=== PATIENT | female | born 1945 | race Caucasian/White ===

== ENCOUNTER 2023-08-25 06:35 | Day surgery (SDC) | payer MEDICARE, OTHER, SELFPAY ==
[2023-08-25] VITALS (13 sets, daily range): BP systolic 50–165; BP diastolic 52–92; BMI 33.5
[2023-08-25] MEDS: TYLENOL 1000 MG PO (12:27)
--- NOTE | 2023-08-25 16:16 | W.SUR.PREOP ---
Pre-Operative Surgical Note
-
I have examined this patient prior to the performance of the scheduled procedure.
The patient's condition is unchanged from the time of the current History and
Physical and the patient is able to undergo the scheduled procedure.
--- NOTE | 2023-08-25 16:16 | W.IMMPOSTOP ---
Surgical Immed Post Op Note
-
primary Surgeon: Marcello Garcia MD
Assisting Surgeon: None
Pre-op Diagnosis: Incisional ventral hernia
Post-op Diagnosis: Same
Procedure Performed:
1. Open incisional ventral hernia repair with mesh
2. Lysis of adhesions
3. Bilateral myofascial advancement flaps
Anesthesia Type: General
Specimen / Cultures: None
Estimated Blood Loss: 17 cc
Complications: None
Operative Findings: Botswanan cheese midline defects extending from the xiphoid to below the umbilicus, final dimensions 10 x 8 cm. Bilateral myofascial advancement flaps were created at the superior aspects to allow for approximation of the posterior
rectus sheath without tension. A 22 x 22 cm Bard soft mesh was placed in the retrorectus space. A single 19 Czech round Rosendo drain was placed through a stab incision in the left lower quadrant.
POST OP PLAN:
Imaging: None
Labs: Routine AM
Diet: Okay for clears, will advance as tolerated
Analgesia: Tylenol 650mg q6 Louie, Leena 5mg q6 PRN, Dilaudid 0.5mg q2h PRN
Neuro/vascular checks: q4h
AC/AP: Hold Therapeutic AC, Ok for DVT PPx
Activity: Ad Modesta
Wound/Incisions/Drains: Routine, CODY to bulb suction.
Abx: None
Dispo: RNF
[2023-08-25] MEDS: MORPHINE SULFATE 1 MG IV ×2 (16:25→16:34)
[2023-08-25] MEDS: NORMOSOL-R 1000 IV (16:49)
[2023-08-25] MEDS: TYLENOL 650 MG PO ×2 (18:18→23:28)
--- NOTE | 2023-08-25 23:35 | PTCARENOTE ---
Pt resting comfortably, denies any complaints. Pt with no urge to void at this time. Bladder scanned for 277ml. No need for st cath at this time. Pt repositioned per comfort. Reports pain at tolerable level. IVF infusing as ordered. Will continue to
monitor.
[2023-08-26 02:00] VITALS: BP 111/54
[2023-08-26] MEDS: NORMOSOL-R 1000 IV ×2 (03:08→18:23)
--- NOTE | 2023-08-26 03:16 | PTCARENOTE ---
Pt awake and ambulatory to bathroom with assistance. pt able to void large amount without difficulty. Pt denies any complaints of pain or discomfort. midline abd aquacell dressing remains dry and intact. Left CODY drain emptied for 30cc at this time.
pt tolerating sips of water. thigh high seq in place. IVF infusing as ordered. Will continue to monitor.
[2023-08-26] MEDS: TYLENOL 650 MG PO ×4 (06:03→23:51)
[2023-08-26] MEDS: SYNTHROID 50 MCG PO (06:03)
--- NOTE | 2023-08-26 07:42 | W.PN.GS2 ---
Today's Communication / Plan
-
Out of bed and ambulate.
Assessment / Plan
-
78-year-old female postoperative day 1 from an incisional hernia repair (bilateral transversus abdominis release and retrorectus mesh). Doing well, expected postoperative course.
Continue pain regimen.
Labs ordered for this a.m.
Out of bed and ambulate, abdominal binder.
Will advance to a regular diet once having bowel function.
Anticipate discharge over the weekend.
Time Spent
Total Time Spent with Patient (in minutes): 10
Subjective Data
-
Date of Service: August 26, 2023
Interval Events:
No acute events overnight. Slept well. Pain Controlled. Denies Nausea/Vomiting, -bowel function. Voided. Tolerating clear liquid diet.
Objective Data
-
Intake and Output
08/25/23 08/26/23 08/27/23
06:59 06:59 06:59
Intake Total 1531 / 1531
Output Total 130 / 130
Balance 1401 / 1401
Intake:
Oral fluids 495 / 495
IV fluids (Total) 1036 / 1036
Normosol-R 1,000 ml @ 75 mls/hr 36 / 36
IV .[id number] [facility]#:[id number]
norm 100 / 100
Output:
Drain Output (Total) 130 / 130
Abdomen Yogi-Eastman 130 / 130
Other:
Number of approximated LARGE 1
amounts of urine
Vital Signs
Temp Pulse Resp BP Pulse Ox
97.5 F 66 16 111/54 97
08/26/23 02:00 08/26/23 02:00 08/26/23 02:00 08/26/23 02:00 08/26/23 02:00
Physical Exam
-
GENERAL/NEURO: Awake, Alert, no distress
CHEST: Unlabored breathing on RA
ABDOMEN: Soft, Non-Tender, Non-Distended, dressing clean dry and intact, CODY a little on the bloody side.
[2023-08-26 08:00] VITALS: BP 133/62
[2023-08-26 08:58] LABS: % Basophils 0.8 % (0-2); % Eosinophils 0.1 % (0-6); % Immature Granulocytes 0.7 % (0-0.5); % Monocytes 7.4 % (1.7-9.3); Absolute Basophils 0.1 10^3/uL (0-0.2); Absolute Immature Granulocytes 0.1 10^3/uL (0-0.05); Absolute Monocytes 0.7 10^3/uL (0.1-0.6); Absolute Neutrophils 7.1 10^3/uL (1.4-6.5); Hematocrit 28.6 % (37.0-47.0); Hemoglobin 9.8 g/dL (12.0-16.0); Mean Corp Hgb Conc. 34.3 g/dL (33.0-37.0); Mean Corpuscular Hgb 27.5 pg (27.0-31.0); Mean Corpuscular Volume 80.1 fL (81.0-99.0); Mean Platelet Volume 9.9 fL (7.4-10.4); Nucleated Red Blood Cells % 0 %; Platelet Count 211 10^3/uL (130-400); Red Blood Cell Count 3.57 10^6/uL (4.20-5.40); Red Cell Dist. Width 13.4 % (11.5-14.5); White Blood Cell Count 8.9 10^3/uL (4.8-10.8)
[2023-08-26 09:18] LABS: Blood Urea Nitrogen 28 mg/dl (7-17); Calcium 8.5 mg/dl (8.4-10.2); Carbon Dioxide 20 mmol/L (22-30); Chloride 101 mmol/L (98-107); Estimated Creatinine Clearance 70 ml/min; Glucose 118 mg/dl (70-99); Potassium 3.7 mmol/L (3.5-5.1); Sodium 134 mmol/L (135-145); eGFR > 60.00
--- NOTE | 2023-08-26 10:52 | CM ---
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
staff, has w/ch in home, no other DME or O2. Pharmacy is [facility] in [facility], PCP is Dr. Chelsea Echeverria. Anticipate home with no needs. Patient is in agreement.
[2023-08-26 11:25] VITALS: BP 105/60
[2023-08-26 11:26] VITALS: BMI 34.2
--- NOTE | 2023-08-26 12:54 | OR.RPT ---
Operative Report
Operative Report
Patient Name: Valerie Cassidy
: 1945
Date of Operation: [08/25/2023]
Preoperative Diagnosis: Incisional ventral hernia
Postoperative Diagnosis: Same
Procedure(s):
1. Open ventral hernia repair with mesh
2. Lysis of adhesions
3. Bilateral myofascial advancement flaps
Surgeon(s):
Dr. Garcia
Feed Crusher(s):
LOYD Borges
Anesthesia: General
Estimated Blood Loss: [17] cc
Urine Output: None
Drains/Lines/Implants: [None]
Specimens: [None]
Indication for surgery:
This is a 78-year-old female with a symptomatic midline incisional hernia from a prior Whipple operation for benign disease. After review of their therapeutic options, they elected to pursue an open repair.
Findings at the time of surgery:
Patient had multiple midline hernia defects extending from the xiphoid to just above the umbilicus. The defect were 10 x 8 cm. After development of the retrorectus space there was significant tension at the superior aspect of the wound so
bilateral myofascial advancement flaps (DARYL procedure) was performed to allow for approximation of the rectus sheath without tension. A 22 x 22 cm piece of Bard soft mesh was placed into the retrorectus space. A single 19 Mongolian round Rosendo drain
was placed through stab incision in the left lower quadrant.
Details of the operation:
After successful induction of general anesthesia and placement of an endotracheal tube, an 18 Mongolian NG tube and a 16 Mongolian Bain were placed. The patient was clipped, prepped and draped in the supine position. A team timeout was performed
confirming administration of DVT prophylaxis, IV antibiotics and SCDs. Her previous midline incision was incised and the dissection was carried down to the fascia. The abdomen was entered safely, though there was significant adhesions to the
anterior abdominal wall. In particular the transverse colon and omentum were particularly adhesed and had to be carefully lysed off of the parietal peritoneum. We then began a full lysis of adhesions taking care to protect her Whipple anatomy.
This took roughly 100 minutes. The hernia defects was roughly 10 x 8 cm. Bilateral tap blocks with quarter percent Marcaine was performed. A blue towel was placed in the abdomen to protect the viscera. We then began our retrorectus hernia repair
by getting into the retrorectus space bilaterally and peeling the rectus muscle off of the posterior rectus sheath up to the neurovascular perforators. The inferior epigastrics bilaterally were identified and protected. In the midline it appeared
that the rectus sheaths would come together however near the apex there was significant tension. At this point we elected to perform bilateral myofascial advancement flaps by incising the posterior lamella of the internal oblique just medial to the
neurovascular bundles and exposing the transversus abdominis muscle bellies. The muscle bellies were divided using electrocautery, taking care to not violate the underlying transversalis fascia/peritoneum. This was taken down roughly 6 cm
bilaterally allowing sufficient mobilization of the posterior rectus sheath. The posterior rectus sheath was then closed with running 2-0 Vicryl that was anchored at each apex and run to the middle and tied together. Prior to closing this, the
blue towel was removed. Our dissection space was measured to be roughly 22 x 22 cm and so 30 x 30 cm piece of Bard soft mesh was cut to size and placed in the retrorectus space without fixation. A single 19 Mongolian round Rosendo drain was then placed
through a stab incision in the left lower quadrant and brought up the right retrorectus space and secured in place with a 3-0 nylon. The anterior fascia was then closed with running 0 PDS sutures anchored at each apex and tied in the middle. The
skin was then closed in layers with first running 2-0 Vicryl followed by interrupted 3-0 Vicryl subdermals and finally a running 4-0 Monocryl followed by Dermabond. An Aquacel dressing was placed. Counts were correct x 2.
I was the attending physician and performed the procedure with assistance from the TRACK REPAIRER above. I was present for all portions of the case
Marcello Garcia MD
[2023-08-26 15:48] VITALS: BP 117/61
[2023-08-26] MEDS: LOVENOX 40 MG SC (17:50)
[2023-08-26] MEDS: ROXICODONE 5 MG PO (18:23)
[2023-08-26 23:35] VITALS: BP 124/64
[2023-08-27] MEDS: ROXICODONE 5 MG PO ×2 (00:26→23:41)
[2023-08-27 05:25] VITALS: BMI 34.2
[2023-08-27] MEDS: TYLENOL 650 MG PO ×4 (05:34→23:42)
[2023-08-27] MEDS: SYNTHROID 50 MCG PO (05:34)
[2023-08-27 06:26] LABS: % Basophils 0.8 % (0-2); % Eosinophils 2.8 % (0-6); % Immature Granulocytes 0.4 % (0-0.5); % Lymphocytes 24.2 % (20.5-51.1); % Monocytes 8.8 % (1.7-9.3); Absolute Eosinophils 0.2 10^3/uL (0-0.7); Absolute Lymphocytes 1.3 10^3/uL (1.2-3.4); Absolute Monocytes 0.5 10^3/uL (0.1-0.6); Absolute Neutrophils 3.4 10^3/uL (1.4-6.5); Hematocrit 28.7 % (37.0-47.0); Hemoglobin 9.4 g/dL (12.0-16.0); Mean Corp Hgb Conc. 32.8 g/dL (33.0-37.0); Mean Corpuscular Hgb 27.4 pg (27.0-31.0); Mean Corpuscular Volume 83.7 fL (81.0-99.0); Nucleated Red Blood Cells % 0 %; Platelet Count 173 10^3/uL (130-400); Red Blood Cell Count 3.43 10^6/uL (4.20-5.40); Red Cell Dist. Width 13.5 % (11.5-14.5); White Blood Cell Count 5.3 10^3/uL (4.8-10.8)
[2023-08-27 06:48] LABS: Blood Urea Nitrogen 17 mg/dl (7-17); Calcium 8.3 mg/dl (8.4-10.2); Carbon Dioxide 28 mmol/L (22-30); Chloride 106 mmol/L (98-107); Estimated Creatinine Clearance 71 ml/min; Glucose 99 mg/dl (70-99); Potassium 3.5 mmol/L (3.5-5.1); Sodium 137 mmol/L (135-145); eGFR > 60.00
[2023-08-27 07:51] VITALS: BP 138/65
--- NOTE | 2023-08-27 09:02 | W.PN.GS2 ---
Today's Communication / Plan
-
Continue clears, await bowel function
Assessment / Plan
-
78-year-old female postoperative day 1 from an incisional hernia repair (bilateral transversus abdominis release and retrorectus mesh). Doing well, expected postoperative course.
Continue pain regimen.
Labs have normalized
Out of bed and ambulate, abdominal binder.
Continue clears for now and await bowel function
Anticipate discharge over the weekend.
Subjective Data
-
Date of Service: August 27, 2023
Patient states that she feels well. She has 5 out of 10 pain which is manageable. She has no bowel function yet. She denies nausea or vomiting.
Objective Data
-
Intake and Output
08/26/23 08/27/23 08/28/23
06:59 06:59 06:59
Intake Total 1531 / 1531 1860 / 1860 900 / 900
Output Total 130 / 130 167 / 167
Balance 1401 / 1401 1693 / 1693 900 / 900
Intake:
Oral fluids 495 / 495 960 / 960
IV fluids (Total) 1036 / 1036 900 / 900 900 / 900
Normosol-R 1,000 ml @ 75 mls/hr 36 / 36
IV .[id number] [facility]#:[id number]
norm 100 / 100
Output:
Drain Output (Total) 130 / 130 167 / 167
Abdomen Yogi-Eastman 130 / 130 167 / 167
Other:
Number of approximated MODERATE 5
amounts of urine
Number of approximated LARGE 1
amounts of urine
Vital Signs
Temp Pulse Resp BP Pulse Ox
97.5 F 57 19 138/65 95
08/27/23 07:51 08/27/23 07:51 08/27/23 07:51 08/27/23 07:51 08/27/23 07:51
Lab Results
08/27/23 05:29
08/27/23 05:29
Calcium 8.3 mg/dl (8.4-10.2) L 08/27/23 05:29
Physical Exam
-
GENERAL/NEURO: Awake, Alert, no distress
CHEST: Unlabored breathing on RA
ABDOMEN: Soft, Non-Tender, Non-Distended, dressing clean dry and intact, CODY a serosanguineous
--- NOTE | 2023-08-27 10:53 | CM ---
met with patient at bedside; HARPAL explained and signed
[2023-08-27 15:35] VITALS: BP 149/79
[2023-08-27] MEDS: LOVENOX 40 MG SC (17:46)
[2023-08-27 23:20] VITALS: BP 128/79
[2023-08-28] MEDS: SYNTHROID 50 MCG PO (05:06)
[2023-08-28] MEDS: TYLENOL 650 MG PO ×2 (05:06→11:58)
[2023-08-28 05:57] LABS: % Basophils 0.4 % (0-2); % Eosinophils 4.9 % (0-6); % Immature Granulocytes 0.4 % (0-0.5); % Lymphocytes 23.1 % (20.5-51.1); % Monocytes 10.5 % (1.7-9.3); % Neutrophils 60.7 % (42.2-75.2); Absolute Eosinophils 0.2 10^3/uL (0-0.7); Absolute Lymphocytes 1.1 10^3/uL (1.2-3.4); Absolute Monocytes 0.5 10^3/uL (0.1-0.6); Absolute Neutrophils 2.8 10^3/uL (1.4-6.5); Hematocrit 27.9 % (37.0-47.0); Hemoglobin 9.2 g/dL (12.0-16.0); Mean Corpuscular Hgb 27.5 pg (27.0-31.0); Mean Corpuscular Volume 83.3 fL (81.0-99.0); Mean Platelet Volume 10.4 fL (7.4-10.4); Nucleated Red Blood Cells % 0 %; Platelet Count 176 10^3/uL (130-400); Red Blood Cell Count 3.35 10^6/uL (4.20-5.40); Red Cell Dist. Width 13.3 % (11.5-14.5); White Blood Cell Count 4.7 10^3/uL (4.8-10.8)
[2023-08-28 06:23] LABS: Blood Urea Nitrogen 10 mg/dl (7-17); Calcium 8.4 mg/dl (8.4-10.2); Carbon Dioxide 26 mmol/L (22-30); Chloride 108 mmol/L (98-107); Estimated Creatinine Clearance 82 ml/min; Glucose 101 mg/dl (70-99); Potassium 3.7 mmol/L (3.5-5.1); Sodium 136 mmol/L (135-145); eGFR > 60.00
[2023-08-28 07:30] VITALS: BP 143/70
--- NOTE | 2023-08-28 11:47 | W.PN.GS2 ---
Today's Communication / Plan
-
discharge
Assessment / Plan
-
78-year-old female postoperative day 2 from an incisional hernia repair (bilateral transversus abdominis release and retrorectus mesh). Doing well, expected postoperative course.
Continue pain regimen.
Labs have normalized
Out of bed and ambulate, abdominal binder.
Okay for discharge today given bowel function. Will go home with the drain. She will empty daily. Follow up with general surgery on Tuesday or Tuesday. She will call the office tomorrow.
Subjective Data
-
Date of Service: August 28, 2023
Patient states that she feels well.� She has 5 out of 10 pain which is manageable.� She has bowel function. She has no complaints.
Objective Data
-
Intake and Output
08/27/23 08/28/23 08/29/23
06:59 06:59 06:59
Intake Total 1860 / 1860 2740 / 2740
Output Total 167 / 167 80 / 80
Balance 1693 / 1693 2660 / 2660
Intake:
Oral fluids 960 / 960 1840 / 1840
IV fluids (Total) 900 / 900 900 / 900
Output:
Drain Output (Total) 167 / 167 80 / 80
Abdomen Yogi-Eastman 167 / 167 80 / 80
Other:
Number of approximated MODERATE 5 4
amounts of urine
Number of unmeasured liquid
stools
Rectum 3
Vital Signs
Temp Pulse Resp BP Pulse Ox
98.2 F 62 18 143/70 98
08/28/23 07:30 08/28/23 07:30 08/28/23 07:30 08/28/23 07:30 08/28/23 08:00
Lab Results
08/28/23 05:07
08/28/23 05:07
Calcium 8.4 mg/dl (8.4-10.2) 08/28/23 05:07
Physical Exam
-
GENERAL/NEURO: Awake, Alert, no distress
CHEST: Unlabored breathing on RA
ABDOMEN: Soft, Non-Tender, Non-Distended, dressing clean dry and intact, CODY a serosanguineous
--- NOTE | 2023-08-28 11:53 | W.DS.TRANS ---
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
-
Discharge Instructions:
Sleep Apnea Risk Low
Discharge Diagnosis/Procedures status post incisional hernia repair (bilateral
transversus abdominis release and retrorectus
mesh)
Diet Regular
Activity No strenuous activity
Additional Activity Out of bed with abdominal binder.
Call the office tomorrow, 08/29, to schedule an
appointment for 08/30 or 08/[address] Garcia.
Driving Restrictions Not until seen by your Dr
Bathing Restrictions OK to Shower
Wound Care Record output of drain daily.
Keep abdominal dressing in place, do not remove.
Instructions:
Stand-Alone Forms:
Changes to Home Medications: Yes
Discharge Medications:
DC Medications w/original date entered in [employer]
levothyroxine 50 mcg tablet 50 mcg PO DAILY 11/21/13
atorvastatin 10 mg tablet 10 mg PO DAILY 08/23/23
hydrochlorothiazide 25 mg tablet 25 mg PO DAILY 08/23/23
lisinopril 5 mg tablet 5 mg PO DAILY 08/23/23
calcium carbonate 500 mg calcium (1,250 mg) chewable tablet (Calcium 500) 1,000 mg PO DAILY 08/25/23
cholecalciferol (vitamin D3) 100 mcg (4,000 unit) capsule 100 mcg PO ONCE 08/25/23
cyanocobalamin (B12)-cobamamide 5,000 mcg-100 mcg sublingual lozenge (B12) john sublingual 08/25/23
folic acid 400 mcg tablet 0.4 mg PO DAILY 08/25/23
magnesium 500 mg tablet 15 mg PO DAILY 08/25/23
psyllium 500 mg capsule 0.52 g PO DAILY 08/25/23
vitamin E 268 mg (400 unit) capsule 268 mg PO DAILY 08/25/23
zinc 50 mg tablet 50 mg PO DAILY 08/25/23
tramadol 50 mg tablet 50 mg PO Q6H PRN Pain #20 tabs 08/28/23
Home Medication Changes
tramadol 50 mg tablet 50 mg PO Q6H PRN Pain #20 tabs 08/28/23
Pending Results: No
[2023-08-28] MEDS: ROXICODONE 5 MG PO (12:01)
--- NOTE | 2023-08-28 13:43 | CM ---
Chart reviewed and patient has been cleared for discharge, home no needs.
Plan; Home no needs.
== END 2023-08-28 13:35 | disposition home or self-care (01) ==
LOC: SDS 06:35
PROVIDERS: ATTENDING PHYSICIAN Surgery
DX: K43.2 Incisional hernia without obstruction or gangrene (principal)
CPT/HCPCS: 49591; 80048; 85025; C1781

== ENCOUNTER → 2024-06-13 10:07 | Outpatient (REF) | payer MEDICARE, OTHER, SELFPAY | LOC: HWRAD 10:07 | PROVIDERS: ATTENDING PHYSICIAN Internal Medicine | DX: M81.0 Age-related osteoporosis without current pathological fracture (principal); Z12.31 Encounter for screening mammogram for malignant neoplasm of breast | CPT/HCPCS: 77063; 77067; 77080 ==

== ENCOUNTER → 2025-07-22 11:50 | Outpatient (REF) | payer MEDICARE, OTHER, SELFPAY | LOC: HWWDC 11:50 | PROVIDERS: ATTENDING PHYSICIAN Internal Medicine | DX: Z12.39 Encounter for other screening for malignant neoplasm of breast (principal) | CPT/HCPCS: 77063; 77067 ==